=== PATIENT | female | born 1955 | race Caucasian/White ===

== ENCOUNTER 2020-10-15 06:56 | Outpatient (CLI) | payer OTHER, SELFPAY ==
[2020-10-15 07:35] LABS: Basophils Absolute Auto 0.1 K/mm3 (0.0-0.1); Basophils Percent Auto 0.8 % (0.2-1.2); Eosinophils Absolute Auto 0.2 K/mm3 (0-0.3); Eosinophils Percent Auto 2.6 % (0-4.4); Hematocrit 41.4 % (37.0-47.0); Hemoglobin 14.1 g/dL (12.0-15.0); Immature Granulocyte Absolute 0.03 K/mm3 (0.00-0.031); Immature Granulocyte Percent A 0.5 % (0-0.5); Lymphocytes Absolute Auto 2.24 K/mm3 (0.9-3.2); Mean Corpuscular HGB Conc 34.1 g/dl (32-36); Mean Corpuscular Hemoglobin 29.6 pg (26-34); Monocytes Absolute Auto 0.4 K/mm3 (0.1-0.6); Monocytes Percent Auto 7.3 % (2.6-8.5); Neutrophils Absolute Auto 3.1 K/mm3 (1.3-6.7); Neutrophils Percent Auto 51.8 % (45.5-73.1); Platelet Count Result 163 k/mm3 (150-375); Red Blood Count 4.76 M/mm3 (4.2-5.4); Red Cell Distribution Width 12.5 % (11.5-14.5); White Blood Count 6.1 K/mm3 (4.5-10.0)
[2020-10-15 07:56] LABS: LDL Cholesterol Direct 78 mg/dL
[2020-10-15 07:59] LABS: Alanine Aminotransferase 24 U/L (4-35); Albumin Level 4.2 g/dL (3.5-5.1); Alkaline Phosphatase 90 U/L (38-126); Anion Gap 9 mmol/L (8-16); Aspartate Amino Transferase 25 U/L (14-36); Bilirubin,Total 0.5 mg/dL (0.2-1.3); Blood Urea Nitrogen 12 mg/dL (7-17); Calcium 9.1 mg/dL (8.4-10.2); Carbon Dioxide 27 mmol/L (22-30); Chloride 97 mmol/L (98-107); Cholesterol 212 mg/dL (0-200); Estimated Glomerular Filt Rate > 60; Glucose 296 mg/dL (65-105); Potassium 4.1 mmol/L (3.4-5.0); Sodium 133 mmol/L (137-145)
[2020-10-15 08:00] LABS: Triglycerides 644 mg/dL (<150)
[2020-10-15 08:09] LABS: Hemoglobin A1C 10.8 % (<5.7)
[2020-10-15 08:49] LABS: Creatinine Urine 54.4 mg/dL
[2020-10-15 08:53] LABS: MALB Creatinine Ratio 31.8 mg/g (0-30); Microalbumin Urine Random 17.3 mg/L (0-16.7)
== END 2020-10-15 06:57 | disposition home or self-care (01) ==
LOC: ANHLAB 06:58
PROVIDERS: PCP Family Medicine; Visit Provider Family Medicine
DX: E03.9 Hypothyroidism, unspecified (principal); E11.9 Type 2 diabetes mellitus without complications; I10 Essential (primary) hypertension; E78.2 Mixed hyperlipidemia
CPT/HCPCS: 36415; 80053; 80061; 82043; 83036; 84443; 85025

== ENCOUNTER 2021-08-11 06:42 | Outpatient (CLI) | payer OTHER, SELFPAY ==
[2021-08-11 07:46] LABS: Basophils Absolute Auto 0.1 K/mm3 (0.0-0.1); Basophils Percent Auto 0.7 % (0.2-1.2); Eosinophils Absolute Auto 0.2 K/mm3 (0-0.3); Eosinophils Percent Auto 2.8 % (0-4.4); Hematocrit 42.1 % (37.0-47.0); Hemoglobin 14.4 g/dL (12.0-15.0); Immature Granulocyte Absolute 0.02 K/mm3 (0.00-0.031); Immature Granulocyte Percent A 0.3 % (0-0.5); Lymphocytes Absolute Auto 3.38 K/mm3 (0.9-3.2); Lymphocytes Percent Auto 45.6 % (18.3-44.2); Mean Corpuscular HGB Conc 34.2 g/dl (32-36); Mean Corpuscular Hemoglobin 29.8 pg (26-34); Mean Platelet Volume 11.2 fl (7.4-10.4); Monocytes Absolute Auto 0.6 K/mm3 (0.1-0.6); Monocytes Percent Auto 7.4 % (2.6-8.5); Neutrophils Absolute Auto 3.2 K/mm3 (1.3-6.7); Neutrophils Percent Auto 43.2 % (45.5-73.1); Platelet Count Result 191 k/mm3 (150-375); Red Blood Count 4.84 M/mm3 (4.2-5.4); Red Cell Distribution Width 12.6 % (11.5-14.5); White Blood Count 7.4 K/mm3 (4.5-10.0)
[2021-08-11 07:55] LABS: Alanine Aminotransferase 29 U/L (4-35); Albumin Level 4.8 g/dL (3.5-5.1); Alkaline Phosphatase 87 U/L (38-126); Anion Gap 11 mmol/L (8-16); Aspartate Amino Transferase 32 U/L (14-36); Bilirubin,Total 0.7 mg/dL (0.2-1.3); Blood Urea Nitrogen 14 mg/dL (7-17); Calcium 9.5 mg/dL (8.4-10.2); Carbon Dioxide 26 mmol/L (22-30); Chloride 97 mmol/L (98-107); Cholesterol 258 mg/dL (0-200); Estimated Glomerular Filt Rate > 60; Glucose 210 mg/dL (65-110); Potassium 3.8 mmol/L (3.4-5.0); Sodium 134 mmol/L (137-145)
[2021-08-11 08:02] LABS: LDL Cholesterol Direct 85 mg/dL
[2021-08-11 08:03] LABS: Hemoglobin A1C 10.7 % (<5.7); Triglycerides 752 mg/dL (<150)
== END 2021-08-11 06:43 | disposition home or self-care (01) ==
PROVIDERS: PCP Family Medicine; Visit Provider Physician Assistant
DX: E11.65 Type 2 diabetes mellitus with hyperglycemia (principal); I10 Essential (primary) hypertension; E78.2 Mixed hyperlipidemia; Z79.4 Long term (current) use of insulin
CPT/HCPCS: 36415; 80053; 80061; 83036; 85025

== ENCOUNTER 2022-06-06 06:48 | Outpatient (CLI) | payer OTHER, SELFPAY ==
[2022-06-06 07:17] LABS: Basophils Percent Auto 0.6 % (0.2-1.2); Eosinophils Absolute Auto 0.2 K/mm3 (0-0.3); Eosinophils Percent Auto 3.6 % (0-4.4); Hematocrit 41.2 % (37.0-47.0); Hemoglobin 13.8 g/dL (12.0-15.0); Immature Granulocyte Absolute 0.01 K/mm3 (0.00-0.031); Immature Granulocyte Percent A 0.2 % (0-0.5); Lymphocytes Percent Auto 40.5 % (18.3-44.2); Mean Corpuscular HGB Conc 33.5 g/dl (32-36); Mean Corpuscular Hemoglobin 29.8 pg (26-34); Mean Platelet Volume 10.9 fl (7.4-10.4); Monocytes Absolute Auto 0.5 K/mm3 (0.1-0.6); Monocytes Percent Auto 7.5 % (2.6-8.5); Neutrophils Absolute Auto 3.1 K/mm3 (1.3-6.7); Neutrophils Percent Auto 47.6 % (45.5-73.1); Platelet Count Result 169 k/mm3 (150-375); Red Blood Count 4.63 M/mm3 (4.2-5.4); White Blood Count 6.4 K/mm3 (4.5-10.0)
[2022-06-06 07:31] LABS: Hemoglobin A1C 11.1 % (<5.7)
[2022-06-06 07:38] LABS: LDL Cholesterol Direct 77 mg/dL
[2022-06-06 07:56] LABS: Alanine Aminotransferase 23 U/L (6-35); Albumin Level 4.7 g/dL (3.5-5.1); Alkaline Phosphatase 90 U/L (38-126); Anion Gap 6 mmol/L (8-16); Aspartate Amino Transferase 27 U/L (14-36); Bilirubin,Total 0.5 mg/dL (0.2-1.3); Blood Urea Nitrogen 12 mg/dL (7-17); Carbon Dioxide 27 mmol/L (22-30); Chloride 101 mmol/L (98-107); Cholesterol 236 mg/dL (0-200); Estimated Glomerular Filt Rate > 60; Glucose 188 mg/dL (65-110); Potassium 3.9 mmol/L (3.4-5.0); Sodium 134 mmol/L (137-145)
[2022-06-06 08:08] LABS: Triglycerides 649 mg/dL (<150)
== END 2022-06-06 06:49 | disposition home or self-care (01) ==
LOC: ANHLAB 06:49
PROVIDERS: PCP Family Medicine; Visit Provider Physician Assistant
DX: R80.9 Proteinuria, unspecified (principal); E78.1 Pure hyperglyceridemia; E11.29 Type 2 diabetes mellitus with other diabetic kidney complication
CPT/HCPCS: 36415; 80053; 80061; 83036; 85025

== ENCOUNTER 2022-07-29 06:56 | Outpatient (CLI) | payer OTHER, SELFPAY ==
[2022-07-29 07:56] LABS: Alanine Aminotransferase 32 U/L (6-35); Albumin Level 4.7 g/dL (3.5-5.1); Alkaline Phosphatase 107 U/L (38-126); Anion Gap 12 mmol/L (8-16); Aspartate Amino Transferase 31 U/L (14-36); Bilirubin,Total 0.5 mg/dL (0.2-1.3); Blood Urea Nitrogen 12 mg/dL (7-17); Calcium 9.3 mg/dL (8.4-10.2); Carbon Dioxide 26 mmol/L (22-30); Chloride 96 mmol/L (98-107); Estimated Glomerular Filt Rate > 60; Glucose 212 mg/dL (65-110); Potassium 3.9 mmol/L (3.4-5.0); Sodium 134 mmol/L (137-145)
[2022-07-29 08:02] LABS: Hemoglobin A1C 10.4 % (<5.7); LDL Cholesterol Direct 58 mg/dL
[2022-07-29 08:19] LABS: Cholesterol 226 mg/dL (0-200)
[2022-07-29 08:24] LABS: Triglycerides 716 mg/dL (<150)
[2022-07-29 08:39] LABS: Creatinine Urine 110.7 mg/dL
[2022-07-29 08:44] LABS: MALB Creatinine Ratio 31.4 mg/g (0-30); Microalbumin Urine Random 34.8 mg/L (0-16.7)
[2022-08-01 20:18] LABS: Glutamic acid decarboxylase AA <5 IU/mL (<5)
[2022-08-02 21:33] LABS: C-Peptide 1.13 ng/mL (0.80-3.85)
== END 2022-07-29 06:57 | disposition home or self-care (01) ==
LOC: ANHLAB 06:57
PROVIDERS: PCP Family Medicine; Visit Provider Nurse Practitioner
DX: E78.5 Hyperlipidemia, unspecified (principal); E11.65 Type 2 diabetes mellitus with hyperglycemia
CPT/HCPCS: 36415; 80053; 80061; 82043; 83036; 84439; 84443; 84681; 86341

== ENCOUNTER 2022-08-02 06:42 | Outpatient (CLI) | payer OTHER, SELFPAY ==
[2022-08-02 09:26] LABS: Cortisol Random 0.75 ug/dL
== END 2022-08-02 06:43 | disposition home or self-care (01) ==
LOC: ANHLAB 06:44
PROVIDERS: PCP Family Medicine; Visit Provider Nurse Practitioner
DX: R63.5 Abnormal weight gain (principal)
CPT/HCPCS: 36415; 82533

== ENCOUNTER 2022-08-08 00:46 | Day surgery (SDC) | payer OTHER, SELFPAY ==
[2022-07-27 15:01] VITALS: BMI 34.4
[2022-08-08 08:14] VITALS: BP 221/80; PULSE 73; RESP 18; TEMP 36.3; O2SAT 98
[2022-08-08] MEDS: LACTATED RINGERS 1,000 ML 150 ML IV CONT (08:23)
[2022-08-08 08:30] LABS: Glucose Point of Care 233 mg/dl (65-105)
--- NOTE | 2022-08-08 08:37 | WPDANESEPPF ---
Anes - Initial Pre Proc Eval Procedure: Operation Date: 08/08/22 09:15 Proposed Procedures p Colonoscopy - Arsalan Harp MD Date/Time: 08/08/22 08:37 Surgeon: Arsalan Harp MD Pre Op Diagnosis: positive cologuard Patient Data Age: 66 Gender: F Height: 1.65 m Weight: 92.9 kg Last Vital Signs Temp 36.3 C L 08/08/22 08:14 Pulse 73 08/08/22 08:14 Resp 18 08/08/22 08:14 BP 221/80 H 08/08/22 08:14 Pulse Ox 98 08/08/22 08:14 O2 Del Method Room Air 08/08/22 08:14 Allergies Allergy/AdvReac Type Severity Reaction Status Date / Time insulin glargine Allergy Unknown Hives Verified 08/08/22 08:12 RODRIGO Inhibitors AdvReac Intermediate Anxiety Verified 08/08/22 08:12 ARB-Angiotensin Receptor AdvReac Intermediate Chest Pain Verified 08/08/22 08:12 Antagonist Home Medications Medication Instructions Recorded Confirmed Type blood sugar diagnostic #10 ea 10/24/19 07/27/22 History flash glucose scanning reader #1 ea 10/24/19 07/27/22 Rx (FreeStyle Howard 14 Day [place]) flash glucose sensor (FreeStyle #2 ea 10/24/19 07/27/22 Rx Howard 14 Day Sensor kit) pen needle, diabetic 31 gauge x #300 ea 12/24/21 07/27/22 Rx 3/16 (BD Ultra-Fine Mini Pen Needle) losartan 50 mg tablet See Rx Instructions .Route 05/05/22 07/27/22 Rx .COMPLEX #30 tabs insulin detemir U-100 100 unit/mL 90 unit (0.9 mL) subcut .COMPLEX 06/16/22 07/27/22 Rx (3 mL) subcutaneous pen (Levemir #60 mL FlexTouch U-100 Insulin) metoprolol succinate 200 mg See Rx Instructions .Route 06/20/22 07/27/22 Rx tablet,extended release 24 hr .COMPLEX #90 tabs hydralazine 10 mg tablet 10 mg PO BID #180 tabs 06/21/22 07/27/22 Rx icosapent ethyl 1 gram capsule 2 g PO BID 90 days #360 caps 06/21/22 07/27/22 Rx (Vascepa) rosuvastatin 20 mg tablet See Rx Instructions .Route 06/21/22 07/27/22 Rx .COMPLEX #90 tabs insulin aspart U-100 100 unit/mL See Rx Instructions .Route 07/11/22 07/27/22 Rx (3 mL) subcutaneous pen (Novolog .COMPLEX #15 mL Flexpen U-100 Insulin aspart) Laboratory Tests 08/08/22 08:27 POC Capillary Glucose 233 mg/dl H mg/dl (65-105) Patient hx anesthesia problems: none Family hx anesthesia problems: none Results Review: All pre-operative results and documents have been reviewed as part of the pre-operative evaluation. [facility] Past Medical History Medical History Elevated cholesterol with elevated triglycerides KHADIJAH (generalized anxiety disorder) Long-term insulin use Pancreatitis Pulmonary HTN Renal cell adenoma of right kidney Uncontrolled diabetes mellitus White coat syndrome with diagnosis of hypertension Surgical History Surgical History Hx of partial nephrectomy 2004 Family History Family History Father Hypertension Family history of elevated blood lipids Family history of diabetes mellitus in first degree relative Family history of coronary artery disease Mother Hypertension Family history of elevated blood lipids Family history of diabetes mellitus in first degree relative Social History Social History Social History: Smoking status: Never smoker Second hand tobacco smoke exposure: No Alcohol intake: never Substance use: never Substance use type: does not use Living arrangements: with family Gender identity (if verbalized by the patient): Female Sexual Orientation (if Verbalized by the Patient): Straight or Heterosexual Spiritual care concerns: No Anes - Eval Final PreProcedure Day of Procedure 08/08/22 08:37 Patient weight: obese Heart: regular rate and rhythm Lungs: clear to auscultation Airway: Mallampati scale class II Neurological: alert and oriented Last oral intake
--- NOTE | 2022-08-08 08:38 | SUR.PREOP ---
Pt blood pressure 221/80 Dr. Prado (anesthesia) notified. No new orders received.
--- NOTE | 2022-08-08 08:44 | PM.HPGS ---
History of Present Illness History of Present Illness Consent: Risks, benefits, and alternatives have been discussed and questions answered. Patient agrees to proceed with procedure. Chief complaint: positive cologuard Narrative: Maricarmen Rivero is a 66 year old female here for positive cologuard, never had colonoscopy Review of Systems Constitutional: Constitutional: Denies headache(s) and Denies weakness Eyes: Eyes: Denies blurry vision ENT: Reports Normal hearing present, Denies headache(s) and Denies neck pain Cardiovascular: Cardiovascular: Denies chest pain and Denies dyspnea Respiratory: Respiratory: Denies dyspnea Gastrointestinal: Gastrointestinal: Reports no additional gastrointestinal complaints Genitourinary: Genitourinary: Denies dysuria Musculoskeletal: Musculoskeletal: Denies neck pain Integumentary/Breasts: Skin/Breast: Denies dry skin Neurologic: Reports Normal hearing present, Denies headache(s) and Denies weakness Psychiatric: Psychiatric: Denies anxiety Endocrine: Endocrine: Denies change in body appearance Hematologic/Lymphatic: Hematologic/Lymphatic: Denies easy bleeding Allergic/Immunologic: Allergic/Immunologic: Denies urticaria PMFSH Past Medical History Medical History Elevated cholesterol with elevated triglycerides KHADIJAH (generalized anxiety disorder) Long-term insulin use Pancreatitis Pulmonary HTN Renal cell adenoma of right kidney Uncontrolled diabetes mellitus White coat syndrome with diagnosis of hypertension Surgical History Surgical History Hx of partial nephrectomy 2004 Family History Family History Father Hypertension Family history of elevated blood lipids Family history of diabetes mellitus in first degree relative Family history of coronary artery disease Mother Hypertension Family history of elevated blood lipids Family history of diabetes mellitus in first degree relative Social History Social History Social History: Smoking status: Never smoker Second hand tobacco smoke exposure: No Alcohol intake: never Substance use: never Substance use type: does not use Living arrangements: with family Gender identity (if verbalized by the patient): Female Sexual Orientation (if Verbalized by the Patient): Straight or Heterosexual Spiritual care concerns: No Meds Home Medications and Allergies Home Medications Medication Instructions Recorded Confirmed Type blood sugar diagnostic #10 ea 10/24/19 07/27/22 History flash glucose scanning reader #1 ea 10/24/19 07/27/22 Rx (FreeStyle Howard 14 Day [place]) flash glucose sensor (FreeStyle #2 ea 10/24/19 07/27/22 Rx Howard 14 Day Sensor kit) pen needle, diabetic 31 gauge x #300 ea 12/24/21 07/27/22 Rx 3/16 (BD Ultra-Fine Mini Pen Needle) losartan 50 mg tablet See Rx Instructions .Route 05/05/22 07/27/22 Rx .COMPLEX #30 tabs insulin detemir U-100 100 unit/mL 90 unit (0.9 mL) subcut .COMPLEX 06/16/22 07/27/22 Rx (3 mL) subcutaneous pen (Levemir #60 mL FlexTouch U-100 Insulin) metoprolol succinate 200 mg See Rx Instructions .Route 06/20/22 07/27/22 Rx tablet,extended release 24 hr .COMPLEX #90 tabs hydralazine 10 mg tablet 10 mg PO BID #180 tabs 06/21/22 07/27/22 Rx icosapent ethyl 1 gram capsule 2 g PO BID 90 days #360 caps 06/21/22 07/27/22 Rx (Vascepa) rosuvastatin 20 mg tablet See Rx Instructions .Route 06/21/22 07/27/22 Rx .COMPLEX #90 tabs insulin aspart U-100 100 unit/mL See Rx Instructions .Route 07/11/22 07/27/22 Rx (3 mL) subcutaneous pen (Novolog .COMPLEX #15 mL Flexpen U-100 Insulin aspart) Allergies Allergy/AdvReac Type Severity Reaction Status Date / Time insulin glargine Allergy Unknown Hives Verified 08/08
[2022-08-08 09:12] VITALS: BP 118/63; PULSE 69; RESP 19; O2SAT 96
[2022-08-08 09:22] VITALS: BP 136/75; PULSE 66; RESP 22; O2SAT 96
[2022-08-08 09:32] VITALS: BP 161/80; PULSE 62; RESP 21; O2SAT 97
[2022-08-08 09:32] LABS: Glucose Point of Care 245 mg/dl (65-105)
== END 2022-08-08 09:46 | disposition home or self-care (01) ==
PROVIDERS: PCP Family Medicine; Visit Provider Internal Medicine Gastroenterology
PROC: 0DJD8ZZ Inspection of Lower Intestinal Tract, Via Natural or Artificial Opening Endoscopic (ICD-10-PCS; CPT 45378; principal; 2022-08-08 09:15)
DX: R19.5 Other fecal abnormalities (principal); D12.0 Benign neoplasm of cecum; D12.2 Benign neoplasm of ascending colon; K64.8 Other hemorrhoids; E11.9 Type 2 diabetes mellitus without complications; E78.2 Mixed hyperlipidemia; F41.1 Generalized anxiety disorder; I27.20 Pulmonary hypertension, unspecified; Z90.5 Acquired absence of kidney; Z79.4 Long term (current) use of insulin; E66.9 Obesity, unspecified; Z68.34 Body mass index [BMI] 34.0-34.9, adult; Z85.528 Personal history of other malignant neoplasm of kidney
CPT/HCPCS: 45385; 82948; 88305; J2704; J7120

== ENCOUNTER 2022-08-23 09:15 | Outpatient (RCR) | payer MEDICARE, SELFPAY ==
[2022-08-18 13:03] VITALS: BMI 33.7
[2022-08-18 14:13] VITALS: BMI 33.7
== END 2022-11-14 14:33 | disposition home or self-care (01) ==
LOC: ANHDMC 09:15
PROVIDERS: PCP Family Medicine; Visit Provider Nurse Practitioner
DX: E11.65 Type 2 diabetes mellitus with hyperglycemia (principal); Z71.3 Dietary counseling and surveillance; Z71.89 Other specified counseling
CPT/HCPCS: 97802; G0108

== ENCOUNTER 2022-12-16 07:12 | Outpatient (CLI) | payer MEDICARE, SELFPAY ==
[2022-12-16 07:58] LABS: Alanine Aminotransferase 31 U/L (6-35); Albumin Level 4.8 g/dL (3.5-5.1); Alkaline Phosphatase 77 U/L (38-126); Anion Gap 10 mmol/L (8-16); Aspartate Amino Transferase 29 U/L (14-36); Bilirubin,Total 0.7 mg/dL (0.2-1.3); Blood Urea Nitrogen 15 mg/dL (7-17); Calcium 9.5 mg/dL (8.4-10.2); Carbon Dioxide 27 mmol/L (22-30); Chloride 101 mmol/L (98-107); Cholesterol 208 mg/dL (0-200); Estimated Glomerular Filt Rate > 60; Glucose 136 mg/dL (65-110); HDL Direct 39 mg/dL; Potassium 4.1 mmol/L (3.4-5.0); Sodium 138 mmol/L (137-145); Triglycerides 399 mg/dL (<150)
[2022-12-16 08:09] LABS: LDL Cholesterol Direct 74 mg/dL
[2022-12-16 08:10] LABS: Hemoglobin A1C 7.4 % (<5.7)
[2022-12-16 08:33] LABS: Free T4 Free Thyroxine 1.02 ng/mL (0.78-2.19)
[2022-12-16 10:15] LABS: Creatinine Urine 114.7 mg/dL
[2022-12-16 10:19] LABS: MALB Creatinine Ratio 37.8 mg/g (0-30); Microalbumin Urine Random 43.3 mg/L (0-16.7)
== END 2022-12-16 07:13 | disposition home or self-care (01) ==
LOC: ANHLAB 07:14
PROVIDERS: PCP Family Medicine; Visit Provider Nurse Practitioner
DX: E11.65 Type 2 diabetes mellitus with hyperglycemia (principal); E78.5 Hyperlipidemia, unspecified
CPT/HCPCS: 36415; 80053; 80061; 82043; 83036; 84439; 84443

== ENCOUNTER 2023-03-22 08:00 | Outpatient (CLI) | payer MEDICARE, SELFPAY ==
[2023-03-23 11:03] LABS: Cortisol Random 1.05 ug/dL
== END 2023-03-22 08:01 | disposition home or self-care (01) ==
LOC: ANHLAB 18:51
PROVIDERS: PCP Family Medicine; Visit Provider Internal Medicine Endocrinology, Diabetes & Metabolism
DX: R63.5 Abnormal weight gain (principal)
CPT/HCPCS: 36415; 80299; 82533

== ENCOUNTER → 2023-03-23 09:39 | Outpatient (CLI) | payer MEDICARE, SELFPAY ==
--- NOTE | ~2023-03-23 | XR_ITS ---
XR cervical spine 4-5V INDICATION: Cervicalgia TECHNIQUE: 4 views of the cervical spine. FINDINGS: No prior studies for comparison. There is mild disc narrowing at C6-7. Vertebral body heights are maintained. Odontoid process is norm al. There is moderate multilevel uncinate and facet hypertrophy. Lung apices are normal. Lateral mass es normally aligned. No prevertebral soft tissue abnormality. IMPRESSION: 1. Moderate cervical spondylosis.. Reviewed, dictated and finalized at location []
--- NOTE | ~2023-03-23 | XR_ITS ---
XR thoracic spine 2V 03/23/2023 10:09 Indication: Thoracic back pain Procedure: 3 views thoracic spine Comparison: No prior studies for comparison. Findings: Vertebral body heights are maintained. Mild levoscoliosis. Surrounding osseous structures a re unremarkable. Surrounding osseous structures and soft tissues are unremarkable. No foreign bodies. No fracture or traumatic malalignment. There are small marginal osteophytes at multiple levels. Impression: 1: Mild thoracic spondylosis with levoscoliosis. Reviewed, dictated and finalized at location [] Impression: 1: Mild thoracic spondylosis with levoscoliosis.
== END ==
PROVIDERS: PCP Family Medicine; Visit Provider Family Medicine
DX: M54.2 Cervicalgia (principal); M54.6 Pain in thoracic spine; G54.2 Cervical root disorders, not elsewhere classified
CPT/HCPCS: 72050; 72070

== ENCOUNTER 2023-06-27 06:44 | Outpatient (CLI) | payer MEDICARE, SELFPAY ==
[2023-06-27 07:31] LABS: Alanine Aminotransferase 42 U/L (6-35); Albumin Level 4.3 g/dL (3.5-5.1); Alkaline Phosphatase 83 U/L (38-126); Anion Gap 9 mmol/L (8-16); Aspartate Amino Transferase 38 U/L (14-36); Bilirubin,Total 0.5 mg/dL (0.2-1.3); Blood Urea Nitrogen 10 mg/dL (7-17); Calcium 8.8 mg/dL (8.4-10.2); Carbon Dioxide 27 mmol/L (22-30); Chloride 100 mmol/L (98-107); Cholesterol 204 mg/dL (0-200); Estimated Glomerular Filt Rate > 60; Glucose 84 mg/dL (65-110); HDL Direct 41 mg/dL; Potassium 3.3 mmol/L (3.4-5.0); Sodium 136 mmol/L (137-145); Triglycerides 496 mg/dL (<150)
[2023-06-27 07:36] LABS: Hemoglobin A1C 7.1 % (<5.7)
[2023-06-27 07:42] LABS: LDL Cholesterol Direct 65 mg/dL
[2023-06-27 08:06] LABS: MALB Creatinine Ratio 100.6 mg/g (0-30); Microalbumin Urine Random 47.3 mg/L (0-16.7)
[2023-06-27 08:16] LABS: Free T4 Free Thyroxine 1.16 ng/mL (0.78-2.19)
[2023-07-04 14:14] LABS: PRA 0.72 ng/mL/h (0.25-5.82)
== END 2023-06-27 06:45 | disposition home or self-care (01) ==
PROVIDERS: PCP Family Medicine; Visit Provider Internal Medicine Endocrinology, Diabetes & Metabolism
DX: E11.9 Type 2 diabetes mellitus without complications (principal); I10 Essential (primary) hypertension; E78.2 Mixed hyperlipidemia
CPT/HCPCS: 36415; 80053; 80061; 82043; 82088; 83036; 84244; 84439; 84443

== ENCOUNTER 2024-04-29 06:48 | Outpatient (CLI) | payer MEDICARE, SELFPAY ==
[2024-04-29 09:43] LABS: Creatinine Urine 67.2 mg/dL
[2024-04-29 09:47] LABS: MALB Creatinine Ratio 22.9 mg/g (0-30); Microalbumin Urine Random 15.4 mg/L (0-16.7)
[2024-04-29 09:52] LABS: Free T4 Free Thyroxine 0.93 ng/mL (0.78-2.19)
== END 2024-04-29 06:49 | disposition home or self-care (01) ==
PROVIDERS: PCP Family Medicine; Visit Provider Internal Medicine Endocrinology, Diabetes & Metabolism
DX: E11.29 Type 2 diabetes mellitus with other diabetic kidney complication (principal); E78.1 Pure hyperglyceridemia; R79.89 Other specified abnormal findings of blood chemistry; R80.9 Proteinuria, unspecified
CPT/HCPCS: 36415; 82043; 82306; 82607; 84439; 84443

== ENCOUNTER 2024-10-30 13:26 | Outpatient (CLI) | payer MEDICARE, SELFPAY ==
--- NOTE | ~2024-10-30 | DEXA_ITS ---
Bone Density Report Name: PETEY CASAS Age: 69 Sex: Female Ethnicity: White Date of : 1955 Indication: postmenopausal; screening for osteoporosis; height loss; Referring Provider: PARISA MCCARTNEY Study: Bone densitometry was performed. Exam Date: October 30, 2024 Accession number: [id number] Bone Density: Region BMD T-score Z-score Classification AP Spine(L1-L4) 1.083 0.3 2.2 Normal Femoral Neck (Left) 0.844 0.0 1.6 Normal Total Hip (Left) 0.944 0.0 1.4 Normal Femoral Neck (Right) 0.846 0.0 1.6 Normal Total Hip (Right) 0.951 0.1 1.4 Normal Total Hip Mean 0.948 0.1 1.4 Normal World Health Organization criteria for BMD impression classify patients as: Normal (T-score at or above -1.0), Osteopenia (T-score between -1.0 and -2.5), or Osteoporosis (T-score at or below -2.5). 10-year Fracture Risk: FRAX not reported because: All T-scores for Spine Total, Hip Total, Femoral Neck at or above -1.0 Clinical Information Provided by Patient: Patient maximum height was 65 Menopause Age: 57 No regular weight bearing exercise Drinks caffeinated beverages Onset of menses at age 15 Number of children 2 Impression: The patient has normal bone mass. Discussion: BONE DENSITY IS ABOVE THE MINIMUM DESIRABLE LEVEL AT ALL SKELETAL SITES TESTED. This patient?s bone mineral density is above the minimum desirable level (T-score -1.0 or better) at all sites measured. The patient should follow a healthful lifestyle (good nutrition with adequate calcium and vitamin D, and appropriate weight-bearing exercise). Follow-Up: Consider repeating this study in 5 years or sooner if there is some new clinical indication. Reported by: CHRIS on 10/30/2024 2:01:00 PM. Reviewed, dictated and finalized at location [facility]
--- OUTSIDE RECORDS SUMMARY | 2024-11-01 01:14 | XMS_ITS | Referral Summary ---
Author Organization [facility] Address [address] [place] [address] Care Team Providers Care Market Reporter Name Role Phone Rachelle Jonas MD Primary Care Provider + Source Comments [facility],non-owned Affiliates and Associated Physician Practices is amultiple site organization consisting of ambulatory clinics and hospital sitesin [place], [place], [place] and [place]. This disclosure is being madepursuant to the Care Everywhere program and may not contain all information available regarding this patient. Last updated 18.[facility] [employer] Allergies No known active allergies Immunizations Name Administration Dates Next Due FLU VACCINE QUAD IIV4 PF ID 08/02/2016 INFLUENZA VACCINE, QUADR. (F LUZONE; FLULAVAL; FLUARIX; AFLURIA QUADRIVALENT; 6MO+), 0.5 ML (IIV4) 07/12/2021,07/07/2020,07/08/2019, 017 TDAP (7yrs+) 08/29/2020 iNFLUENZA VACCINE, RECOM-NOLEN, QUADR. (FLUBLOCK QUADRIVALENT; 18Y+) (RIV4) 07/03/2018 Social History Tobacco Use Types Packs/Day Years Used Date Smoking Tobacco: Never Assessed Sex and Gender Information Value Date Recorded Sex Assigned at Not on file Gender Identity Not on file Sexual Orientation Not on file Plan of Treatment Not on file Care Teams Market Reporter Relationship Specialty Start Date End Date Rachelle Jonas MD [address] [place] [address] PCP - General 08/22/22
--- OUTSIDE RECORDS SUMMARY | 2024-11-01 01:14 | XMS_ITS | Clinical Summary ---
Author Organization [facility] [employer] Address [address] [place] [address] Care Team Providers Care Molecular Modeler Name Role Phone Rachelle Jonas MD Primary Care Provider + Source Comments [facility] [employer],non-owned Affiliates and Associated Physician Practices is amultiple site organization consisting of ambulatory clinics and hospital sitesin [place], [place], [place] and [place]. This disclosure is being madepursuant to the Care Everywhere program and may not contain all information available regarding this patient. Last updated 18.[facility] [employer] Allergies No known active allergies Immunizations Name [...] Orientation Not on file Plan of Treatment Health Maintenance Due Date Last Done Comments BONE DENSITY TESTING 1955 COLOGUARD (AGES 45-75) - COLON CA SCREENING 1955 COLON MONITORING 1955 COLONOSCOPY - COLON CA SCREENING 1955 CT COLONOGRAPHY - COLON CA SCREENING 1955 Colorectal Cancer Screening 1955 FIT - COLON CA SCREENING 1955 FLEX SIG - COLON CA SCREENING 1955 LIPID TESTING 1955 MAMMOGRAM 1955 HEPATITIS C SCREENING 08/09/1975 PNEUMOCOCCAL VACCINE 50+ (1 of 1 - PCV) 2007 ZOSTER VACCINE (1 of 2) 2007 COVID-19 VACCINE (3 - season) 2024 01/04/2021, 12/04/2020 INFLUENZA VACCINE (#1) 2024 , 07/07/2020, 07/08/2019, Additional history exists DEPRESSION SCREENING 10/09/2024 DTAP/TDAP/TD VACCINES (2 - Td or Tdap) 08/29/2030 08/29/2020 Respiratory Syncytial Virus (RSV) Vaccine Pt: or over 60 yrs (1 - 1-dose 75+ series) 2032 HEPATITIS B VACCINE Aged Out No longe r eligible based on patient's age to complete this topic HIB VACCINE Aged Out No longer eligi ble based on patient's age to complete this topic HPV VACCINE Aged Out No longer eligi ble based on patient's age to complete this topic MENINGOCOCCAL (Group B) VACCINE Aged Out No longer eligible based on patient's age to complete this topic MENINGOCOCCAL VACCINE Aged Out No chyna cyn eligible based on patient's age to complete this topic Care Teams Molecular Modeler Relationship Specialty Start Date End Date Rachelle Jonas MD [address] [place] [address] PCP - General 08/22/22
--- OUTSIDE RECORDS SUMMARY | 2024-11-01 01:14 | XMS_ITS | Data Portability ---
Author Organization [place] [facility], Main Office Address [address] [place] [address] Care Team Providers Care Brand Marketing Manager Name Role Phone MAHENDRA SOL Primary Care Provider Assessment No assessment recorded. Plan of Treatment Reminders Order Date Submit Date Provider Last Modified By Organization Details Last Modified Time Details Appointments None recorded. Lab cortisol, am, serum 2022 023 [facility] (Lab), [address] [place] [address], [address], 3 16:28:15 dexamethaso ne, serum 2022 023 [facility] (Lab), [address] [place] [address], [address], 3 15:40:47 lipid panel, serum [address] (Lab), [address] [place] [address], [address], 3 15:55:20 T4, free, serum 2022 023 [facility] (Lab), [address] [place] [address], [address], 3 10:19:03 TSH, serum or plasma [address] (Lab), [address] [place] [address], [address], 3 15:55:20 HbA1c (hemoglobin A1c), blood [address] (Lab), [address] [place] [address] [address], [place], [address], 3 15:55:20 CMP, serum or plasma [address] (Lab), [address] [place] [address] [address], [place], [address], 3 15:55:21 microalbumi n/creatinin e, mass ratio, urine 2022 023 [facility] (Lab), [address] [place] [address] [address], [place], [address], 3 12:58:50 aldosterone /renin activity, ratio, plasma [address] (Lab), [address] [place] [address] [address], [place], [address], 3 15:55:20 renin activity + aldosterone , plasma 2022 023 [facility] (Lab), [address] [place] [address] [address], [place], [address], 3 10:04:22 Referral endocrinolo gy referral 2022 023 [email or web address] 1 Libby Zeng MD, [address],, [facility], [place], [address], 3 17:38:57 Procedures None recorded. Surgeries None recorded. Imaging None recorded. Medication Orders dexamethaso ne 1 mg tablet 2022 023 [email or web address] [facility]/Pharmacy #3258, [address] [place], [address], 3 08:33:12 rosuvastati n 20 mg tablet 2022 023 [facility]/Pharmacy #3254, [address] [place], [address], 3 16:01:10 metformin ER 500 mg tablet,exte nded release 24 hr 2022 023 [facility] [address] [place] [address], [address], 3 15:52:55 glimepiride 2 mg tablet 2022 023 [email or web address] [facility]/Pharmacy #3259, [address] [place] [address], [address], 3 14:06:12 rosuvastati n 20 mg tablet 2022 023 [facility] [address] [place] [address], [address], 3 14:41:18 icosapent ethyl 1 gram capsule 2022 023 [facility] [address] [place] [address], [address], 3 14:41:19 glimepiride 4 mg tablet 2022 023 [facility] [address] [place] [address], [address], 3 14:41:18 metformin ER 500 mg tablet,exte nded release 24 hr 2022 023 [facility]/Pharmacy #3259, [address] [place] [address], [address], 3 14:41:18 Tresiba FlexTouch U-100 insulin 100 unit/mL (3 mL) subcutaneou s pen 2022 023 [facility] [address] [place] [address], [address], 3 14:41:15 OneTouch Verio test strips 2022 023 [facility] [address] [place], [address], 3 14:41:16 Humalog KwikPen U-200 Insulin 200 unit/mL (3 mL) subcutaneou s 2022 023 [facility] [address] [place] [address], [address], 3 14:41:19 losartan 100 mg tablet 2022 023 [facility] [address] [place] [address], [address], 3 14:41:16 metoprolol succinate ER 200 mg tablet,exte nded release 24 hr 2022 023 [facility] [address] [place], [address], 3 14:41:16 hydralazine 10 mg tablet 2022 023 [facility] [address] [place] [address], [address], 3 14:41:17 Patient TargetsNo targets recorded. Patient InstructionsNo instructions recorded. Reason for Referral Endocrinology Referral for W ell controlled type 2 diabetes mellitus Referring Physician: Akiko Jenkins, Endocrinology, Encounter Date: 07/04/2023 Results Created Date Observation Date Name Description Value Unit Range Abnormal Flag Note LastModifiedBy Organization Detail LastModifiedTime Result Notes None recorded. Problems Name Problem SNOMED Code Status Onset Date Resolution Date Notes Provider Name and Address Organization Details Recorded Time Disorder of trunk 633140279 Active Not Available [facility] 3 18:35:28 Shoulder joint pain 961022273 Active Not Available [facility] 3 18:35:28 Dyslipidemia 637822175 Active 2021 Not Available [facility] 3 18:35:29 Type 2 diabetes mellitus 18070345 Active 2021 Not Available [facility] 3 18:35:29 Uncontrolled type 2 diabetes mellitus 622087354 Active 2021 Not Available [facility] 3 18:35:29 Essential hypertension 27955690 Active 2021 Not Available [facility] 3 18:35:29 Weight gain 5935779 Active 2021 Not Available [facility] 3 18:35:29 Well controlled type 2 diabetes mellitus 353859070 Active 2022 Akiko Jenkins MD [address] [facility], [employer], [place], [address] , [employer] 3 15:51:52 Mixed hyperlipidemi a 496422972 Active 2022 Akiko Jenkins MD [address], [place], [address] , [employer] 3 15:54:35 Problem Notes None recorded. Procedures Surgical History Date Name Laterality Status Provider Name and Address Organization Details Recorded Time partial nephrectomy completed Not Available [facility] 12/07/2022 18:35:03 Imaging Results None recorded. Procedure Notes None recorded. Medical Equipment None Reported. Allergies Allergen ID Allergen Name Allergen Category Reaction Reaction Severity Criticality Documentation Date Start Date Code Code System Note Provider Name and Address Organization Details Recorded Time 84733 insulin glargine medicatio n Not available Not available Not available 12/07/2022 09970 3 RxNorm Not Available [facility] 3 18:36:41 54644 Product containin g angiotens in II receptor antagonis t (product) medicatio n Not available Not available Not available 12/07/2022 82274 008 SNOMED Not Available [facility] 3 18:36:41 52350 Product containin g angiotens in-conver ting enzyme inhibitor (product) medicatio n Not available Not available Not available 12/07/2022 56286 009 SNOMED Not Available [facility] 3 18:36:41 Medications Name Sig Start Date Stop Date Status Note LastModified by Organization Details LastModified Time losartan 50 mg tablet TAKE 1 TABLET BY MOUTH EVERY DAY 09/19 completed Not Available Not Available Not Available hydralazine 10 mg tablet 10 MG ORALLY TWICE A DAY 2022 active Not Available Not Available Not Avai lable atorvastati n 10 mg tablet 07/22 completed Not Available Not Available Not Available ofloxacin 0.3 % eye drops INSTILL 1 DROP INTO EYE 3 TIMES A DAY STARTING 2 DAYS BEFORE SURGERY AND CONTINUIN G FOR 1 WEEK AFTER 03/14 completed Not Available Not Available Not Available metoprolol succinate ER 200 mg tablet,exte nded release 24 hr TAKE 1 TABLET BY MOUTH EVERY DAY 2022 active Not Available Not Available Not Avai lable fenofibrate micronized 200 mg capsule TAKE 1 CAPSULE BY MOUTH EVERY DAY 07/22 completed Not Available Not Available Not Available glimepiride 2 mg tablet Take 2 tablets twice a day by oral route before meals for 90 days. 07/04 completed Not Available Not Available Not Available ketorolac 0.5 % eye drops INSTILL 1 DROP INTO EYE 3 TIMES A DAY STARTING 2 DAYS BEFORE SURGERY, CONTINUE FOR 2 WEEKS AFTER 03/14 completed Not Available Not Available Not Available prednisolon e acetate 1 % eye drops,suspe nsion INSTILL 1 DROP INTO EYE 3 TIMES A DAY STARTING AFTER SURGERY, CONTINUE FOR 3 WEEKS 03/14 completed Not Available Not Available Not Available dexamethaso ne 1 mg tablet TAKE TABLET AT 10 P.M. THE NIGHT BEFORE 8 A.M. CORTISOL LAB TEST 07/04 completed Not Available Not Available Not Available glimepiride 4 mg tablet Take 1 tablet twice a day by oral route before meals for 90 days. 2022 active Not Available Not Available Not Avai lable Synthroid 50 mcg tablet 07/22 completed Not Available Not Available Not Available diclofenac sodium 75 mg tablet,brenda yed release 03/14 completed Not Available Not Available Not Available losartan 50 mg-hydrochl orothiazide 12.5 mg tablet 07/22 completed Not Available Not Available Not Available losartan 100 mg tablet TAKE 1 TABLET BY MOUTH EVERY DAY IN THE MORNING active Not Available Not Available No t Available metformin ER 500 mg tablet,exte nded release 24 hr TAKE 1 TABLET BY MOUTH TWICE A DAY BEFORE MEALS active Not Available Not Available No t Available glipizide 5 mg tablet active Not Available Not Available No t Available amoxicillin -potassium clavulanate 1,000 mg-62.5 mg tablet,ext. rel 12hr TK 2 TS PO Q TWELVE H X 10 DAYS 07/22 completed Not Available Not Available Not Available Novolog FlexPen U-100 Insulin aspart 100 unit/mL (3 mL) subcutaneou s Inject by subcutane ous route for 30 days. 07/04 completed Not Available Not Available Not Available cyclobenzap rine 5 mg tablet 03/14 completed Not Available Not Available Not Available rosuvastati n 20 mg tablet Take 1 tablet every day by oral route at bedtime for 90 days. 2022 active Not Available Not Available Not Avai lable BD Ultra-Fine Mini Pen Needle 31 gauge x 3/16 USE WITH INSULIN PEN 5 TIMES DAILY active Not Available Not Available No t Available fenofibrate micronized 130 mg capsule 07/22 completed Not Available Not Available Not Available Levemir FlexPen 100 unit/mL (3 mL) solution subcutaneou s insulin pen INJECT 50 UNITS UNDER THE SKIN IN THE MORNING AND 90 UNITS IN THE EVENING 07/04 completed Not Available Not Available Not Available Lantus Solostar U-100 Insulin 100 unit/mL (3 mL) subcutaneou s pen Inject 70 units twice a day by subcutane ous route as directed for 30 days. active Not Available Not Available No t Available OneTouch Verio test strips use to check glucose 3 times daily 2022 active Not Available Not Available Not Avai lable icosapent ethyl 1 gram capsule TAKE 2 CAPSULES BY MOUTH TWICE A DAY 2022 active Not Available Not Available Not Avai lable Humalog KwikPen U-200 Insulin 200 unit/mL (3 mL) subcutaneou s inject up to 150 units daily in divided doses before meals 2022 active Not Available Not Available Not Avai lable Tresiba FlexTouch U-100 insulin 100 unit/mL (3 mL) subcutaneou s pen INJECT UP TO 120 UNITS DAILY AT BEDTIME AND INCREASE/ DECREASE BY 10 UNITS EVERY 3 DAYS TO MAINTAIN FASTING GLUCOSE OF 90-130 MG/DL 2022 active Not Available Not Available Not Avai lable OneTouch Delica Plus Lancet 33 gauge USE TO TEST 3 TIMES A DAY active Not Available Not Available No t Available OneTouch Verio Reflect Meter USE TO TEST DIRECTED active Not Available Not Available No t Available Vitals Date Recorded Body mass index (BMI) Body height Oxygen saturation Oxygen saturation in Arterial blood by Pulse oximetry Heart rate Body temperature Body weight Systolic blood pressure Diastolic blood pressure Provider Name and Address Organization Details Last Updated DateTime 2 33.9 kg/m2 166.62 cm 97 % 97 % 72 /min 97.6 [degF] 80125.7 8 g 155 mm[Hg] 85 mm[Hg] Not Available [facility] 3 18:35:08 Date Recorded Body mass index (BMI) Body height Oxygen saturation Oxygen saturation in Arterial blood by Pulse oximetry Heart rate Body temperature Body weight Systolic blood pressure Diastolic blood pressure Provider Name and Address Organization Details Last Updated DateTime 2 34.1 kg/m2 166.62 cm 99 % 99 % 77 /min 97.2 [degF] 97577.8 1 g 135 mm[Hg] 95 mm[Hg] Not Available [facility] 3 18:35:08 Date Recorded Body height Body temperature Body mass index (BMI) Body weight Respiratory rate Heart rate Systolic blood pressure Diastolic blood pressure Provider Name and Address Organization Details Last Updated DateTime 3 166.62 cm 98.2 [degF] 34 kg/m2 08195.9 3 g 18 /min 78 /min 162 mm[Hg] 98 mm[Hg] CLARENCE Perdomo [facility] 3 15:26:57 Date Recorded Body height Body mass index (BMI) Body weight Body temperature Respiratory rate Heart rate Systolic blood pressure Diastolic blood pressure Provider Name and Address Organization Details Last Updated DateTime 3 166.62 cm 34.5 kg/m2 60739.7 1 g 98 [degF] 18 /min 84 /min 160 mm[Hg] 88 mm[Hg] Lexis Samuel RN [facility] 14:10:37 Social History Question Answer Notes LastModified by [email or web address] Details LastModified Time Tobacco Smoking Status Never Smoker jaime rodgers, [facility] 07/04/2023 14:01:03 What Is Your Level Of Alcohol Consumption? None [id number] Information not available 12/07/2022 What Is Your Level Of Caffeine Consumption? Occasional Half & Half Coffee, Occassional Tea [id number] Information not available 12/07/2022 What Type Of Diet Are You Following? REGULAR [id number] Information not available 12/07/2022 How Many Days Of Moderate To Strenuous Exercise, Like A Brisk Walk, Did You Do In The Last 7 Days? 7 Walking, [employer] Videos [email or web address] Information not available 07/04/2023 What Is Your Relationship Status? [id number] Information not available 12/07/2022 Do You Use Any Illicit Or Recreational Drugs? No [email or web address] Information not available 07/04/2023 Do You Have Any Dietary Restrictions? No [email or web address] Information not available 07/04/2023 Sex: Female Functional Status Question Answer Note LastModified by [email or web address] Details LastModified Time What is your exercise level? Occasional [id number] Information not available 12/07/2022 Mental Status None recorded. Family History Relationship Description Onset Age of this Age Resolved Age Notes LastModified by Organization Details LastModified Time Father Hypertensive disorder [id number] Not available 12/07/2022 18:35:03 Father Family history of Raised blood lipids [email or web address] Not available 07/04 14:01:02 Mother Hypertensive disorder [id number] Not available 12/07/2022 18:35:03 Mother Family history of Raised blood lipids [email or web address] Not available 07/04 14:01:02 Notes:Mother: Family Hx of d iabetes mellitus in first degree relative Father: Family Hx of diabetes mellitus in first degree relative Medical History Condition Response ARTHRITIS Y DIABETES, TYPE Y KIDNEY DISEASE SKIN PROBLEMS Y LIVER DISEASE Y HEART ARRHYTHMIA HYPERTENSION Y HIGH CHOLESTEROL / HYPERLIPIDEMIA Y CANCER: SPECIFY Y EYE PROBLEMS Y GERD/NAUSEA Y DEPRESSION (INCLUDING POST ) Y STROKE/TIA Y Gynecological HistoryNo gynecological history recorded. Obstetrics History GPAL:G 0 P 0 0 0 0 Past Encounters Encounter ID Performer Location Encounter Start Date Encounter Closed Date Diagnosis/Indication Diagnosis SNOMED-CT Code Diagnosis ICD10 Code Diagnosis Note [id number] [facility] [address] [place] [address] 07/22/2022 00:00:00 07/22/2022 13:45:06 [id number] [facility] [address] [place] [address] 09/19/2022 00:00:00 09/19/2022 15:27:58 [id number] Akiko Jenkins MD [facility] [address] [place] [address] 03/14/2023 15:08:23 03/14/2023 16:04:09 Well controlled type 2 diabetes mellitus 143996303 E11.9 a1c of 7.4% down from 10% range- she has significan t insulin resistance - unable to take glp1 agonist therapy due to previous pancreatit is history. Will uptitrate metformin to 500 mg twice daily with meals. Encouraged patient to test sugars prebreakfa st and predinner and at times before bedtime to maintain log for review at return visit. Recommend she take her glimepirid e on glucose scale according to glucose checks. If sugars are running under 100 mg/dL hold glimepirid e, if 101-140 mg/dL take half tablet, if 141-180 mg/dL take full tablet and if over 180 mg/dL take 2 tablets for the full 4 mg of glimepirid e up to twice daily before meals. If sugars are consistent ly over 180 mg/dL she was advised to contact clinic and notify me so we can modify changes. Patient advised to bring glucose meter at return visit for review. Continue tresiba 120 units at bedtime and increase or decrease by 10 units every 3 days to maintain fasting glucose 90-130 mg/dL. Transition to humalog for correction only at 3U:50>150 mg/dl on premeal sugars. Will send for low dose dexa suppressio n testing to screen for hypercorti solic state. Weight gain 0592384 R63. 5 Essential hypertension 98211763 I10 Patient is on multiple medication s for blood pressure control. Would recommend she undergo a simple fasting blood test to screen for primary hyperaldos teronism and if found to be positive we could plan to transition to an aldosteron e taylor and wean off multiple medication s. Patient was provided lab order to obtain fasting before 9 am. Mixed hyperlipidemia 267 265426 E78.2 Continue rosuvastat in and vascepa for lipid control. Spent up to 28 minutes preparing to see the patient (eg, review of tests), obtaining and/or reviewing separately obtained history, performing a medically appropriat e examinatio n and evaluation , counseling and educating the patient, ordering medication s, tests, along with documentin g clinical informatio n in the electronic health record, independen tly interpreti ng results and communicat ing results to the patient. RTC in 4 months. Patient was provided a handwritte n lab order which contains our fax number. If she chooses to go outside of the [facility] to obtain labwork she was advised to provide our fax number and my informatio n to the lab she will be obtaining labwork from in order to have her labs properly forwarded over for me to review so there is no loss of follow up due to use of outside network. She was also advised to contact our clinic informing us that she has completed her labwork so we are aware we will need to reach out to the appropriat e laboratory to request her results be forwarded to us so I might have the ability to review and make further medical decision making in her case. She voiced understand ing. [id number] Akiko Jenkins MD [facility] [address] [place] [address] 07/04/2023 13:59:15 07/04/2023 17:38:57 Well controlled type 2 diabetes mellitus 635159655 E11.9 a1c of 7.1% down from 10% range- she has significan t insulin resistance and better since start of metformin- unable to take glp1 agonist therapy due to previous pancreatit is history. Continue on metformin 500 mg twice daily with meals. Continue glimepirid e scale. Continue tresiba 120 units at bedtime and increase or decrease by 10 units every 3 days to maintain fasting glucose 90-130 mg/dL. Transition to humalog for correction only at 3U:50>150 mg/dl on premeal sugars. DST normal but should be repeated in 6-12 months to monitor for change due to insulin resistance and hypertensi on. refer to endocrinol ogy per patient request. Essential hypertension 53971967 I10 Continue on losartan, metoprolol and hydralaxin e- per patient well controlled at home typically 120-130 systolic over 80-90 mmhg. Mixed hyperlipidemia 267 602454 E78.2 Continue rosuvastat in and vascepa for lipid control. Recommende d thyroid support as her TSH at 5 uIU/ml/nor mal FT4 but having signs of early thyroid disease- needs adequate iodine supplement ation along with cleansing of diet/AIP. Spent up to 25 minutes preparing to see the patient (eg, review of tests), obtaining and/or reviewing separately obtained history, performing a medically appropriat e examinatio n and evaluation , counseling and educating the patient, ordering medication s, tests, along with documentin g clinical informatio n in the electronic health record, independen tly interpreti ng results and communicat ing results to the patient. Patient can be followed by PCP - she/he is aware of my resignatio n and last day of July 21. If needed his/her PCP can refer patient to another endocrinol ogist in the area. All questions /concerns answered and refills necessary at visit today. Health Concerns Section Related Observation LastModified by Organization Detai ls LastModified Time None Recorded Concern Status LastModified by Organization Details LastModified Time None Recorded Advance Directives Directive None Recorded Payers Encounter Date Sequence Insurance Name Policy Number Policy Gray Covered Member ID Gray Member ID Guarantor Name 03/14/2023 2 [place] Maricarmen Clouser [id number] Maricarmen Clouser 03/14/2023 1 [employer] (MEDICARE REPLACEMENT PPO) [id number] Maricarmen D Clouser [id number] Maricarmen Clouser 07/04/2023 2 [place] Maricarmen Clouser [id number] Maricarmen Clouser 07/04/2023 1 [employer] (MEDICARE REPLACEMENT PPO) [id number] 1 Maricarmen D Clouser [id number] Maricarmen Clouser Notes Date Note Type Note Provider Name and Address Organization Details Recorded Time 03/14/2023 text/html 67 yo female com es in for follow up in management of uncontrolled type 2 DM (A1C of 7.4% from December), dyslipidemia. last seen in Sep 2022 at that time we had patient increase levemir to 75 units BID and titrate by 5 units to maintain FBG 90-130. Continue metformin ER 500 mg once daily. Continue novolog 25 units with meals plus correction of 2u:50>150. She has hx of pancreatitis so unable to go on GLP1 agonist therapies. Continue statin therapy. she is taking metformin ER 500 mg daily As far as her insulin she is taking humalog 100 units split into three doses a day before meals. She is now on tresiba 120 units at bedtime. She has hx of renal cancer in 2004 and had pancreatitis in 2003. She had partial nephrectomy /right at that time. She is on hydralazine and losartan for BP control- her blood pressure does run a little high. she doesn't have trouble falling asleep but doesn't stay asleep. She used to get up a lot to go to bathroom Sugars running around 140 mg/dL or less in morningpremeals under 150 mg/dL labs from 12/29;a1c of 7.4%microalbumin 37.8 ug/mgFT4 of 1.02 ng/dL cpeptide normal from 07/30 Akiko Jenkins MD [address] [facility], [facility] [address], [place], [address], [facility] [employer] 03/14/2023 18:48:34 07/04/2023 text/html 67 yo female com es in for follow up in management of better controlled type 2 DM (A1C of 7.1% down from 7.4%), mixed dyslipidemia. last seen in March at that time we added metformin and glimepiride scale (cannot take GLP1 agonist therapy due to pancreatitis hx) along with continued tresiba 120 units at bedtime and increase or decrease by 10 units every 3 days to maintain fasting glucose 90-130 mg/dL.Transitioned to humalog for correction only at 3U:50>150 mg/dl on premeal sugars. we sent for DST and adrenal panel due to insulin resistance and hypertension. we continued statin and vascepa for lipid control. She was having lows at her last visit- she is feeling better/regulated at 90 mg/dL in the morning up to 120 mg/dL with new regimen with no hypoglycemia. Her lowest glucose is 85 mg/dL up to 88 mg/dL/sometimes 90 mg/dl. She is not using as much of the humalog as the glimepiride is working well for her. She is having some intermittent/ infrequent diarrhea and not sure if medication induced or food induced. She needs refills on her BP medications- she does follow her PCP for management of hypertension. labs from March:normal DST with cortisol of 1.05 ug/dl labs from 06/27/23:TSH of 5.720 uIUFT4 of 1.16 ng/dLA1C 7.1%204/496/41/65LFT highcr normalglucose 89 mg/dL Akiko Jenkins MD [address] [facility], [facility] [address], [place], [address], [place] [facility] 07/04/2023 14:43:36 OBGyn Episode No OBEpisode recorded.
--- OUTSIDE RECORDS SUMMARY | 2024-11-01 01:14 | XMS_ITS | Patient Health Summary ---
Author Organization [facility] Address [address] [place] [address] Care Team Providers Care Plastics Fitter Name Role Phone Rachelle Jonas MD Primary Care Provider + Note from [facility],non-owned Affiliates and Associated Physician Practices is amultiple site organization consisting of ambulatory clinics and hospital sitesin [place], [place], [place] and [place]. This disclosure is being madepursuant to the Care Everywhere program and may not contain all information available regarding this patient. Last updated 18.[facility] Allergies No known active allergies Immunizations * FLU VACCINE QUAD IIV4 PF ID(Given 08/02/2016) * INFLUENZA VACCINE, QUADR. (FLUZONE; FLULAVAL; FLUARIX; AFLURIA QUADRIVALENT; 6MO+), 0.5 ML (IIV4)(Given 07/12/2021, 07/07/2020, 07/08/2019, 07/04/2017) * TDAP (7yrs+)(Given 08/29/2020) * iNFLUENZA VACCINE, RECOM-NOLEN, QUADR. (FLUBLOCK QUADRIVALENT; 18Y+) (RIV4)(Given 07/03/2018) Social History Tobacco Use Types Packs/Day Years Used Date Smoking Tobacco: Never Assessed Sex and Gender Information Value Date Recorded Sex Assigned at Not on file Gender Identity Not on file Sexual Orientation Not on file Care Teams Plastics Fitter Relationship Specialty Start Date End Date Rachelle Jonas MD [address] [place] [address] PCP - General 08/22/22
== END 2024-10-30 13:27 | disposition home or self-care (01) ==
LOC: ANHIMG 13:32
PROVIDERS: PCP Family Medicine; Visit Provider Internal Medicine Endocrinology, Diabetes & Metabolism
DX: Z78.0 Asymptomatic menopausal state (principal)
CPT/HCPCS: 77080

== ENCOUNTER 2024-12-20 07:40 | Outpatient (CLI) | payer MEDICARE, SELFPAY ==
--- OUTSIDE RECORDS SUMMARY | 2024-12-20 07:45 | XMS_ITS | Clinical Summary ---
Author Organization [facility] [employer] Address [address] [place] [address] Care Team Providers Care Fresh Foods Technician Name Role Phone Rachelle Jonas MD Primary Care Provider + Source Comments [facility] [employer] [facility],non-owned Affiliates and Associated Physician Practices is amultiple site organization consisting of ambulatory clinics and hospital sitesin [place], [place], [place] and [place]. This disclosure is being madepursuant to the Care Everywhere program and may not contain all information available regarding this patient. Last updated 18.[facility] [employer] Allergies No known active allergies Immunizations Name [...] complete this topic MENINGOCOCCAL (Group B) VACCINE SHARED DECISION-MAKING Aged Out No longer eligible based on patient's age to complete this topic MENINGOCOCCAL GROUPS A/C/Y/W VACCINE Aged Out No longer eligible based on patient's age to complete this topic Care Teams Fresh Foods Technician Relationship Specialty Start Date End Date Rachelle Jonas MD [address] [facility] [address] [place] [address] PCP - General 08/22/22
--- OUTSIDE RECORDS SUMMARY | 2024-12-20 07:45 | XMS_ITS | Referral Summary ---
Author Organization [facility] Address [address] [facility] [place] [address] Care Team Providers Care Office Machine Mechanic Name Role Phone Rachelle Jonas MD Primary Care Provider + Source Comments [facility],non-owned Affiliates and Associated Physician Practices is amultiple site organization consisting of ambulatory clinics and hospital sitesin [place], [place], [place] and [place]. This disclosure is being madepursuant to the Care Everywhere program and may not contain all information available regarding this patient. Last updated 18.[facility] [employer] Allergies No known active allergies Immunizations Name [...] of Treatment Not on file Care Teams Office Machine Mechanic Relationship Specialty Start Date End Date Rachelle Jonas MD [address] [place] [address] PCP - General 08/22/22
--- OUTSIDE RECORDS SUMMARY | 2024-12-20 07:45 | XMS_ITS | Data Portability ---
Author Organization [place] [facility] Main Office Address [address] [place] [address] Care Team Providers Care Pediatric Np Name Role Phone MAHENDRA SOL Primary Care Provider Assessment No assessment recorded. Plan of Treatment Reminders Order Date Submit Date Provider Last Modified By Organization Details Last Modified Time Details Appointments None recorded. Lab cortisol, am, serum 2022 023 [facility] (Lab), [address] [place] [address], [address], 3 16:28:15 dexamethaso ne, serum 2022 023 [facility] (Lab), [address] [place] [address], [address], 3 15:40:47 lipid panel, serum [address] (Lab), [address] [place] [address], [address], 3 15:55:20 T4, free, serum 2022 023 [facility] (Lab), [address] [place] [address], [address], 3 10:19:03 TSH, serum or plasma [address] (Lab), [address] [place] [address], [address], 3 15:55:20 HbA1c (hemoglobin A1c), blood [address] (Lab), [facility] [address], [place], [address], 3 15:55:20 CMP, serum or plasma [address] (Lab), [address] [place] [address] [address], [place], [address], 3 15:55:21 microalbumi n/creatinin e, mass ratio, urine 2022 023 [facility] (Lab), [address] [place] [address] [address], [place], [address], 3 12:58:50 aldosterone /renin activity, ratio, plasma [address] (Lab), [address] [place] [address] [address], [place], [address], 3 15:55:20 renin activity + aldosterone , plasma 2022 023 [facility] (Lab), [address] [place] [address] [address], [place], [address], 3 10:04:22 Referral endocrinolo gy referral 2022 023 [email or web address] 1 Libby Zeng MD, [address],, [facility], [place], [address], 3 17:38:57 Procedures None recorded. Surgeries None recorded. Imaging None recorded. Medication Orders rosuvastati n 20 mg tablet 2022 023 [facility]3258, [address] [place], [address], 3 14:41:18 icosapent ethyl 1 gram capsule 2022 023 [facility]3259, [address] [place], [address], 3 14:41:19 glimepiride 4 mg tablet 2022 023 [facility]3259, [address] [place] [address], [address], 3 14:41:18 metformin ER 500 mg tablet,exte nded release 24 hr 2022 023 [facility]259, [address] [place] [address], [address], 3 14:41:18 Tresiba FlexTouch U-100 insulin 100 unit/mL (3 mL) subcutaneou s pen 2022 023 [facility]259, [address] [place] [address], [address], 3 14:41:15 OneTouch Verio test strips 2022 023 [facility]259, [address] [place] [address], [address], 3 14:41:16 Humalog KwikPen U-200 Insulin 200 unit/mL (3 mL) subcutaneou s 2022 023 [facility]259, [address] [place] [address], [address], 3 14:41:19 losartan 100 mg tablet 2022 023 [facility], [address] [place] [address], [address], 3 14:41:16 metoprolol succinate ER 200 mg tablet,exte nded release 24 hr 2022 023 [facility], [address] [place] [address], [address], 3 14:41:16 hydralazine 10 mg tablet 2022 023 [facility] [address] [place], [address], 3 14:41:17 dexamethaso ne 1 mg tablet 2022 023 [address] [place] [address], [address], 3 08:33:12 rosuvastati n 20 mg tablet 2022 023 [facility] [address] [place] [address], [address], 3 16:01:10 metformin ER 500 mg tablet,exte nded release 24 hr 2022 023 [facility] [address] [place], [address], 3 15:52:55 glimepiride 2 mg tablet 2022 023 [address] [place] [address], [address], 3 14:06:12 Patient TargetsNo targets recorded. Patient InstructionsNo instructions [...] Organization Details Recorded Time Disorder of trunk 631990193 Active Not Available [facility] 3 18:35:28 Shoulder joint pain 102931496 Active Not Available [facility] 3 18:35:28 Dyslipidemia 032697116 Active 2021 Not Available [facility] 3 18:35:29 Type 2 diabetes mellitus 79804243 Active 2021 Not Available [facility] 3 18:35:29 Uncontrolled type 2 diabetes mellitus 154332279 Active 2021 Not Available [facility] 3 18:35:29 Essential hypertension 11172054 Active 2021 Not Available [facility] 3 18:35:29 Weight gain 3683470 Active 2021 Not Available [facility] 3 18:35:29 Well controlled type 2 diabetes mellitus 337362466 Active 2022 Akiko Jenkins MD [address] [facility], [employer], [place], [address] , [employer] 3 15:51:52 Mixed hyperlipidemi a 654891766 Active 2022 Akiko Jenkins MD [address], [address], [place], [address] , [employer] 3 15:54:35 Problem Notes None recorded. Procedures Surgical History Date Name Laterality Status Provider Name and Address Organization Details Recorded Time partial nephrectomy completed Not Available [facility] 12/07/2022 18:35:03 Imaging Results None recorded. Procedure Notes None recorded. Medical Equipment None Reported. Allergies Allergen ID Allergen Name Allergen Category Reaction Reaction Severity Criticality Documentation Date Start Date Code Code System Note Provider Name and Address Organization Details Recorded Time 93685 insulin glargine medicatio n Not available Not available Not available 12/07/2022 51056 3 RxNorm Not Available [facility] 3 18:36:41 48108 Product containin g angiotens in II receptor antagonis t (product) medicatio n Not available Not available Not available 12/07/2022 38413 008 SNOMED Not Available [facility] 3 18:36:41 96799 Product containin g angiotens in-conver ting enzyme inhibitor (product) medicatio n Not available Not available Not available 12/07/2022 31243 009 SNOMED Not Available [facility] 3 18:36:41 Medications Name Sig Start Date [...] % 97 % 72 /min 97.6 [degF] 50390.7 8 g 155 mm[Hg] 85 mm[Hg] Not Available [facility] 3 18:35:08 Date Recorded Body mass index (BMI) Body height Oxygen saturation Oxygen saturation in Arterial blood by Pulse oximetry Heart rate Body temperature Body weight Systolic blood pressure Diastolic blood pressure Provider Name and Address Organization Details Last Updated DateTime 2 34.1 kg/m2 166.62 cm 99 % 99 % 77 /min 97.2 [degF] 17392.8 1 g 135 mm[Hg] 95 mm[Hg] Not Available [facility] 3 18:35:08 Date Recorded Body height Body temperature Body mass index (BMI) Body weight Respiratory rate Heart rate Systolic blood pressure Diastolic blood pressure Provider Name and Address Organization Details Last Updated DateTime 3 166.62 cm 98.2 [degF] 34 kg/m2 65777.9 3 g 18 /min 78 /min 162 mm[Hg] 98 mm[Hg] CLARENCE Perdomo [facility] 3 15:26:57 Date Recorded Body height Body mass index (BMI) Body weight Body temperature Respiratory rate Heart rate Systolic blood pressure Diastolic blood pressure Provider Name and Address Organization Details Last Updated DateTime 3 166.62 cm 34.5 kg/m2 23075.7 1 g 98 [degF] 18 /min 84 /min 160 mm[Hg] 88 mm[Hg] Lexis Samuel RN [facility] [employer] [facility] 14:10:37 Social History Question Answer Notes LastModified by [employer] Details LastModified Time Tobacco Smoking Status Never Smoker jaime rodgers [facility] 07/04/2023 14:01:03 What Is Your Level Of Alcohol Consumption? None [id number] Information not available 12/07/2022 What Is Your Level Of Caffeine Consumption? Occasional Half & Half Coffee, Occassional Tea [id number] Information not available 12/07/2022 What Type Of Diet Are You Following? REGULAR [id number] Information not available 12/07/2022 How Many Days Of Moderate To Strenuous Exercise, Like A Brisk Walk, Did You Do In The Last 7 Days? 7 Walking, [employer] [email or web address] Information not available 07/04/2023 What Is Your Relationship Status? [id number] Information not available 12/07/2022 Do You Use Any Illicit Or Recreational Drugs? No [email or web address] Information not available 07/04/2023 Do You Have Any Dietary Restrictions? No [email or web address] Information not available 07/04/2023 Sex: Female Functional Status Question Answer Note LastModified by [employer] Details LastModified Time What is your exercise level? Occasional [id number] Information not available 12/07/2022 Mental Status None recorded. Family History Relationship Description Onset Age of this Age Resolved Age Notes LastModified by Organization Details LastModified Time Father Hypertensive disorder [id number] Not available 12/07/2022 18:35:03 Father Family history of Raised blood lipids [email or web address] Not available 07/04 14:01:02 Mother Hypertensive disorder [id number] Not available 12/07/2022 18:35:03 Mother Family history of Raised blood lipids [email or web address] Not available 07/04 14:01:02 Notes:Mother: Family Hx of d iabetes mellitus in first degree relative Father: Family Hx of diabetes mellitus in first degree relative Medical History Condition Response ARTHRITIS Y SKIN PROBLEMS Y DIABETES, TYPE Y KIDNEY DISEASE LIVER DISEASE Y HEART ARRHYTHMIA HYPERTENSION Y HIGH CHOLESTEROL / HYPERLIPIDEMIA Y EYE PROBLEMS Y CANCER: SPECIFY Y GERD/NAUSEA Y DEPRESSION (INCLUDING POST ) Y STROKE/TIA Y Gynecological HistoryNo gynecological history recorded. Obstetrics History GPAL:G 0 P 0 0 0 0 Past Encounters Encounter ID Performer Location Encounter Start Date Encounter Closed Date Diagnosis/Indication Diagnosis SNOMED-CT Code Diagnosis ICD10 Code Diagnosis Note [id number] [facility] [address] [place] [address] 07/22/2022 00:00:00 07/22/2022 13:45:06 [id number] [facility] [address] [place] [address] 09/19/2022 00:00:00 09/19/2022 15:27:58 [id number] Akiko Jenkins MD [facility] [address] [place] [address] 03/14/2023 15:08:23 03/14/2023 16:04:09 Well controlled type 2 diabetes mellitus 913608661 E11.9 a1c of 7.4% down from 10% [...] screen for hypercorti solic state. Weight gain 1284366 R63. 5 Essential hypertension 73305687 I10 Patient is on multiple medication s for blood pressure control. Would recommend she undergo a simple fasting blood test to screen for primary hyperaldos teronism and if found to be positive we could plan to transition to an aldosteron e taylor and wean off multiple medication s. Patient was provided lab order to obtain fasting before 9 am. Mixed hyperlipidemia 267 677744 E78.2 Continue rosuvastat in and vascepa for [...] she chooses to go outside of the [facility] to obtain labwork she was [...] in her case. She voiced understand ing. [id number] Akiko Jenkins MD [facility] [address] [place] [address] 07/04/2023 13:59:15 07/04/2023 17:38:57 Well controlled type 2 diabetes mellitus 620056662 E11.9 a1c of 7.1% down from 10% [...] endocrinol ogy per patient request. Essential hypertension 93365012 I10 Continue on losartan, metoprolol and hydralaxin e- per patient well controlled at home typically 120-130 systolic over 80-90 mmhg. Mixed hyperlipidemia 267 453263 E78.2 Continue rosuvastat in and vascepa for [...] Name 03/14/2023 2 [place] Maricarmen Clouser [id number] Maricarmen Clouser 03/14/2023 1 [employer] (MEDICARE REPLACEMENT PPO) [id number] Maricarmen D Clouser [id number] Maricarmen Clouser 07/04/2023 2 [place] Maricarmen Clouser [id number] Maricarmen Clouser 07/04/2023 1 [employer] (MEDICARE REPLACEMENT PPO) [id number] 1 Maricarmen D Clouser [id number] Maricarmen Clouser Notes Date Note Type Note [...] of 1.02 ng/dL cpeptide normal from 07/30 Akiok Jenkins MD [address] [facility], [facility] [address], [place], [address], [facility] [employer] 03/14/2023 18:48:34 07/04/2023 text/html 67 yo female [...] normalglucose 89 mg/dL Akiko Jenkins MD [address] [facility], [facility] [address], [place], [address], [place] [facility] 07/04/2023 14:43:36 OBGyn Episode No OBEpisode recorded.
--- OUTSIDE RECORDS SUMMARY | 2024-12-20 07:45 | XMS_ITS | Patient Health Summary ---
Author Organization [facility] Address [address] [facility] [place] [address] Care Team Providers Care Label Stamper Name Role Phone Rachelle Jonas MD Primary Care Provider + Note from [facility],non-owned Affiliates and Associated Physician Practices is amultiple site organization consisting of ambulatory clinics and hospital sitesin [place], [place], [place] and [place]. This disclosure is being madepursuant to the Care Everywhere program and may not contain all information available regarding this patient. Last updated 18.[facility] Allergies No known active allergies Immunizations * [...] Sexual Orientation Not on file Care Teams Label Stamper Relationship Specialty Start Date End Date Rachelle Jonas MD [address] [place] [address] PCP - General 08/22/22
[2024-12-20 08:16] LABS: Alanine Aminotransferase 49 U/L (6-35); Albumin Level 4.5 g/dL (3.5-5.1); Alkaline Phosphatase 100 U/L (38-126); Anion Gap 11 mmol/L (4-12); Aspartate Amino Transferase 31 U/L (14-36); Bilirubin,Total 0.5 mg/dL (0.2-1.3); Blood Urea Nitrogen 12 mg/dL (7-17); Calcium 9.7 mg/dL (8.4-10.2); Carbon Dioxide 30 mmol/L (22-30); Chloride 100 mmol/L (98-107); Cholesterol 170 mg/dL (0-200); Estimated Glomerular Filt Rate > 60; Glucose 113 mg/dL (65-110); HDL Direct 38 mg/dL; Potassium 4.1 mmol/L (3.4-5.0); Sodium 141 mmol/L (137-145); Triglycerides 246 mg/dL (<150)
[2024-12-20 08:28] LABS: LDL Cholesterol Direct 68 mg/dL
== END 2024-12-20 07:41 | disposition home or self-care (01) ==
LOC: ANHLAB 07:42
PROVIDERS: PCP Family Medicine; Visit Provider Internal Medicine Endocrinology, Diabetes & Metabolism
DX: E11.65 Type 2 diabetes mellitus with hyperglycemia (principal); Z79.4 Long term (current) use of insulin
CPT/HCPCS: 36415; 80053; 80061; 84681